=== PATIENT | male | born 1965 | race Caucasian/White ===

== ENCOUNTER → 2018-08-31 | Outpatient (REF) | payer OTHER ==
[2018-08-31 18:10] LABS: BASO # 0.1 10^3/uL (0.0-0.2); BASO % 0.5 % (0.0-1.0); EOS # 0.1 10^3/uL (0.0-0.50); EOS % 1.1 % (0.0-3.0); HEMATOCRIT 50.8 % (42.0-52.0); HEMOGLOBIN 16.7 g/dl (13.5-17.5); IMMATURE GRANULOCYTE % 0.4 % (0-3.0); LYMPH # 2.7 10^3/uL (1.5-4.5); LYMPH % 24.3 % (24.0-44.0); MEAN CORPUSCULAR HEMOGLOBIN 27.7 pg (27.0-33.0); MEAN CORPUSCULAR HGB CONC 32.9 g/dl (32.0-36.5); MEAN CORPUSCULAR VOLUME 84.2 fl (80.0-96.0); MONO # 0.8 10^3/uL (0.0-0.8); MONO % 7.3 % (0.0-5.0); NEUTROPHILS # 7.3 10^3/uL (1.8-7.7); NEUTROPHILS % 66.4 % (36.0-66.0); PLATELET COUNT, AUTOMATED 394 10^3/uL (150-450); RED BLOOD COUNT 6.03 10^6/uL (4.30-6.10); RED CELL DISTRIBUTION WIDTH 17.2 % (11.5-14.5)
[2018-08-31 18:48] LABS: ALBUMIN 3.4 GM/DL (3.2-5.2); ALBUMIN/GLOBULIN RATIO 0.92 (1.00-1.93); ALKALINE PHOSPHATASE 53 U/L (45-117); ALT/SGPT 69 U/L (12-78); ANION GAP 8 MEQ/L (8-16); AST/SGOT 30 U/L (7-37); BLOOD UREA NITROGEN 15 MG/DL (7-18); CALCIUM LEVEL 8.7 MG/DL (8.5-10.1); CARBON DIOXIDE LEVEL 26 MEQ/L (21-32); CHLORIDE LEVEL 106 MEQ/L (98-107); CHOLESTEROL LEVEL 212 MG/DL (<200); CHOLESTEROL RISK RATIO 8.833 (<5); CREATININE FOR GFR 1.96 MG/DL (0.70-1.30); GLUCOSE, FASTING 79 MG/DL (70-100); HDL CHOLESTEROL 24 MG/DL (>40); LDL CHOLESTEROL 168 MG/DL (<100); NON-HDL-C 188 MG/DL; POTASSIUM SERUM 4.8 MEQ/L (3.5-5.1); SODIUM LEVEL 140 MEQ/L (136-145); TOTAL PROTEIN 7.1 GM/DL (6.4-8.2); TRIGLYCERIDES LEVEL 102 MG/DL (<150)
== END ==
LOC: M SFHCCAPE 12:11
DX: R74.8 Abnormal levels of other serum enzymes (principal); I50.9 Heart failure, unspecified

== ENCOUNTER → 2018-09-13 | Outpatient (CLI) | payer OTHER ==
[2018-09-13 17:08] LABS: HEMATOCRIT 50.7 % (42.0-52.0); HEMOGLOBIN 16.3 g/dl (13.5-17.5); MEAN CORPUSCULAR HEMOGLOBIN 26.8 pg (27.0-33.0); MEAN CORPUSCULAR HGB CONC 32.1 g/dl (32.0-36.5); MEAN CORPUSCULAR VOLUME 83.4 fl (80.0-96.0); PLATELET COUNT, AUTOMATED 306 10^3/uL (150-450); RED BLOOD COUNT 6.08 10^6/uL (4.30-6.10); RED CELL DISTRIBUTION WIDTH 15.2 % (11.5-14.5); WHITE BLOOD COUNT 9.5 10^3/uL (4.0-10.0)
[2018-09-13 17:10] LABS: ALBUMIN 3.6 GM/DL (3.2-5.2); ANION GAP 8 MEQ/L (8-16); BILIRUBIN,DIRECT 0.4 MG/DL (0.0-0.2); BILIRUBIN,TOTAL 1.7 MG/DL (0.2-1.0); BLOOD UREA NITROGEN 24 MG/DL (7-18); CALCIUM LEVEL 8.5 MG/DL (8.5-10.1); CARBON DIOXIDE LEVEL 26 MEQ/L (21-32); CHLORIDE LEVEL 107 MEQ/L (98-107); CREATININE FOR GFR 2.08 MG/DL (0.70-1.30); GLOMERULAR FILTRATION RATE 35.5 (>56); GLUCOSE, FASTING 80 MG/DL (70-100); MAGNESIUM LEVEL 2.3 MG/DL (1.8-2.4); NT-PRO BNP 1588 PG/ML (<125); PHOSPHORUS LEVEL 2.9 MG/DL (2.5-4.9); POTASSIUM SERUM 4.4 MEQ/L (3.5-5.1); SODIUM LEVEL 141 MEQ/L (136-145)
== END ==
LOC: M WUC 11:33
DX: I50.43 Acute on chronic combined systolic (congestive) and diastolic (congestive) heart failure (principal)
CPT/HCPCS: 82247

== ENCOUNTER → 2018-09-25 | Outpatient (REF) | payer OTHER ==
[2018-09-25 13:48] LABS: BASO # 0.1 10^3/uL (0.0-0.2); BASO % 0.7 % (0.0-1.0); EOS # 0.3 10^3/uL (0.0-0.50); EOS % 3.5 % (0.0-3.0); HEMATOCRIT 50.2 % (42.0-52.0); HEMOGLOBIN 16.3 g/dl (13.5-17.5); IMMATURE GRANULOCYTE % 0.1 % (0-3.0); LYMPH # 2.5 10^3/uL (1.5-4.5); LYMPH % 32.9 % (24.0-44.0); MEAN CORPUSCULAR HEMOGLOBIN 27.2 pg (27.0-33.0); MEAN CORPUSCULAR HGB CONC 32.5 g/dl (32.0-36.5); MEAN CORPUSCULAR VOLUME 83.8 fl (80.0-96.0); MONO # 0.5 10^3/uL (0.0-0.8); MONO % 6.6 % (0.0-5.0); NEUTROPHILS # 4.2 10^3/uL (1.8-7.7); NEUTROPHILS % 56.2 % (36.0-66.0); PLATELET COUNT, AUTOMATED 259 10^3/uL (150-450); RED BLOOD COUNT 5.99 10^6/uL (4.30-6.10); RED CELL DISTRIBUTION WIDTH 14.9 % (11.5-14.5); WHITE BLOOD COUNT 7.5 10^3/uL (4.0-10.0)
[2018-09-25 14:00] LABS: APPEARANCE, URINE CLEAR (CLEAR); BACTERIA, URINE AUTO NEGATIVE (NEGATIVE); BILIRUBIN, URINE AUTO NEGATIVE (NEGATIVE); BLOOD, URINE BLOOD NEGATIVE (NEGATIVE); COLOR, URINE YELLOW (YELLOW); GLUCOSE, URINE (UA) AUTO NEGATIVE (NEGATIVE); KETONE, URINE AUTO NEGATIVE (NEGATIVE); LEUKOCYTE ESTERASE, URINE AUTO NEGATIVE (NEGATIVE); MUCUS, URINE SMALL (NEGATIVE); NITRITE, URINE AUTO NEGATIVE (NEGATIVE); PROTEIN, URINE AUTO NEGATIVE (NEGATIVE); RBC, URINE AUTO 1 /HPF (0-3); SPECIFIC GRAVITY URINE AUTO 1.016 (1.002-1.035); SQUAMOUS EPITHELIAL CELL UR AU 0 /HPF (0-6); UROBILINOGEN, URINE AUTO 0.2 mg/dL (0.0-2.0); WBC, URINE AUTO 2 /HPF (0-3)
[2018-09-25 14:27] LABS: ALBUMIN 3.8 GM/DL (3.2-5.2); ANION GAP 8 MEQ/L (8-16); BLOOD UREA NITROGEN 28 MG/DL (7-18); CALCIUM LEVEL 9.1 MG/DL (8.5-10.1); CARBON DIOXIDE LEVEL 28 MEQ/L (21-32); CHLORIDE LEVEL 105 MEQ/L (98-107); CREATININE FOR GFR 2.05 MG/DL (0.70-1.30); GLOMERULAR FILTRATION RATE 36.1 (>56); GLUCOSE, FASTING 75 MG/DL (70-100); PHOSPHORUS LEVEL 4.2 MG/DL (2.5-4.9); SODIUM LEVEL 141 MEQ/L (136-145)
[2018-09-25 14:37] LABS: TOTAL 25(OH) VITAMIN D 25.8 NG/ML (30.0-100.0)
== END ==
LOC: M LAB REF 12:54
DX: N18.3 Chronic kidney disease, stage 3 (moderate) (principal); D63.1 Anemia in chronic kidney disease; E55.9 Vitamin D deficiency, unspecified; N25.81 Secondary hyperparathyroidism of renal origin
CPT/HCPCS: 80069

== ENCOUNTER → 2018-09-30 | Outpatient (CLI) | payer OTHER, MEDICAID | LOC: M RAD 08:47 | DX: N18.3 Chronic kidney disease, stage 3 (moderate) (principal); N28.1 Cyst of kidney, acquired | CPT/HCPCS: 76770 ==

== ENCOUNTER → 2018-10-11 | Outpatient (CLI) | payer MEDICAID, OTHER ==
[~2018-10-11] MED LIST: ENTR1TAB PO; METO1TAB32 PO
[2018-10-11 17:31] LABS: CREATININE FOR GFR 1.9 MG/DL (0.70-1.30); GLOMERULAR FILTRATION RATE 39.4 (>56)
== END ==
LOC: M WUC 10:09
PROVIDERS: ATTEND Internal Medicine Cardiovascular Disease
DX: Z01.818 Encounter for other preprocedural examination (principal); I50.21 Acute systolic (congestive) heart failure; R93.1 Abnormal findings on diagnostic imaging of heart and coronary circulation

== ENCOUNTER → 2018-11-10 | Outpatient (CLI) | payer OTHER ==
--- NOTE | 2018-11-13 10:37 | SLEEPCENT ---
DATE OF STUDY: 11/10/2018 ORDERED BY: Dr. Castro Nocturnal polysomnography was performed for evaluation of sleep physiology in this patient with a history of excessive somnolence and nonrestorative sleep, who has comorbidities of dilated cardiomyopathy, reduction of ejection fraction and chronic kidney disease. 8 hours and 49 minutes of data were reviewed. There were 423 minutes of sleep identified. Sleep latency was prolonged at 62.5 minutes. Rapid eye movement (REM) latency was short at 64.5 minutes. Sleep architecture was fairly good with 4 REM cycles. There was significant fragmentation noted however, and the overall sleep was 81%. The electrocardiogram showed a sinus rhythm with premature ventricular contractions (PVCs). Average heart rate 70 beats per minute. Rate ranged 50-80 per minute. EEG showed normal waveforms for awake and sleep stages. No focal events were identified. There were 220 respiratory events identified of 10 seconds in duration or greater for an apnea-hypopnea index of 31.2; 76 of these events were central or mixed in nature. The events were not exclusive to sleep stage nor body posture. Arousals from respiratory events occurred 9.6 times per hour and oxygen desaturations were seen into the 80s. There was some activity in the limb leads but arousals from limb events were few. Snoring was noted. IMPRESSION: Severe possibly complex obstructive sleep apnea syndrome (G47.33). Apnea-hypopnea index 31.2. RECOMMENDATIONS: The patient should be encouraged to return to the sleep disorder center for pressure therapy. Given the frequency of central and mixed apneas, a bilevel device and backup rate may be needed. In the interim, alcohol and sedative avoidance should be practiced and caution exercised during the operation of motor vehicles.
== END ==
LOC: M SLEEP 19:38
PROVIDERS: ATTEND Internal Medicine Pulmonary Disease
DX: G47.33 Obstructive sleep apnea (adult) (pediatric) (principal)

== ENCOUNTER → 2018-11-18 | Outpatient (CLI) | payer OTHER ==
--- NOTE | 2018-11-18 14:55 | REP ---
LEFT CLAVICLE, TWO VIEWS: HISTORY: Pain. There is no acute fracture or dislocation. The glenohumeral joint space is normal in appearance. There is moderate narrowing of the acromioclavicular joint space with associated osteophyte formation. IMPRESSION: Degenerative change as described above. Electronically Signed by Chad Victor MD 11/18/2018 03:04 P
== END ==
LOC: M WUC 14:21
PROVIDERS: ATTEND Physician Assistant
DX: M25.512 Pain in left shoulder (principal)

== ENCOUNTER → 2018-11-25 | Outpatient (CLI) | payer OTHER ==
--- NOTE | 2018-11-25 12:59 | REP ---
Clinical: Abnormal pulmonary findings. Technique: Axial noncontrast images from the thoracic inlet to the upper abdomen with coronal and sagittal re-formations. Comparison: 08/22/2018. Findings: Cardiomegaly is appreciated with mild atherosclerotic changes to the thoracic aorta and coronary arteries. No pericardial effusion is identified. The lung maurer demonstrate minimal linear scarring to the lingula. Subtle air space disease to the right lower lobe may reflect an early versus resolving infiltrate. No further consolidation, significant nodule or mass lesion. Previously identified pleural effusions and pulmonary edema have resolved.. The tracheobronchial tree is patent. No obvious adenopathy. Musculoskeletal structures are intact. Limited upper abdomen demonstrates normal bilateral adrenal glands. Impression: 1. Cardiomegaly. 2. No current evidence for CHF or pulmonary edema. Previously noted pleural effusions and pulmonary congestion has resolved. 3. Possible extremely subtle early or resolving right lower lobe air space disease. 4. No further significant/acute mediastinal or pleuroparenchymal process appreciated. Electronically Signed by Demian Barroso MD 11/25/2018 12:51 P
== END ==
LOC: M RAD 12:24
PROVIDERS: ATTEND Internal Medicine Pulmonary Disease
DX: R91.8 Other nonspecific abnormal finding of lung field (principal); I51.7 Cardiomegaly; I70.0 Atherosclerosis of aorta; I25.10 Atherosclerotic heart disease of native coronary artery without angina pectoris

== ENCOUNTER → 2018-12-30 | Outpatient (CLI) | payer OTHER | LOC: M WUC 14:20 | PROVIDERS: ATTEND Internal Medicine Cardiovascular Disease | DX: I50.42 Chronic combined systolic (congestive) and diastolic (congestive) heart failure (principal) ==

== ENCOUNTER → 2019-01-05 | Outpatient (CLI) | payer OTHER ==
--- NOTE | 2019-01-08 10:00 | SLEEPCENT ---
DATE OF PROCEDURE: 01/05/2019 ORDERED BY: Dr. Castro Nocturnal polysomnography was performed for the titration of pressure therapy in this patient with obstructive sleep apnea syndrome and apnea-hypopnea index of 31. For testing, a [employer] Simplus full face mask of medium size was used and 4 cm of water pressure were applied to the circuit and the lights were extinguished. 7 hours and 51 minutes of data were reviewed. There were 355 minutes of sleep identified. Sleep latency was prolonged at 75 minutes. Rapid eye movement (REM) latency was normal at 85 minutes. Sleep architecture improved with optimal pressure therapy. Overall efficiency was 76%. The electrocardiogram showed sinus rhythm with PVCs and average heart rate of 56 beats per minute. Electroencephalogram (EEG) showed normal waveforms for awake and sleep. Respiratory events were fully palliated with C-PAP at a pressure of +6. Some limb activity, but limb movement arousal index was only 4.7. IMPRESSION: Obstructive sleep apnea syndrome (G47.33) RECOMMENDATION: Nightly use of pressure therapy 6 at cm of water.
== END ==
LOC: M SLEEP 19:07
PROVIDERS: ATTEND Internal Medicine Pulmonary Disease
DX: G47.33 Obstructive sleep apnea (adult) (pediatric) (principal)

== ENCOUNTER → 2019-12-29 | Outpatient (CLI) | payer OTHER | LOC: M WUC 12:02 | PROVIDERS: ATTEND Nurse Practitioner Family | DX: N18.3 Chronic kidney disease, stage 3 (moderate) (principal) ==

== ENCOUNTER → 2020-04-19 | Outpatient (CLI) | payer OTHER ==
[~2020-04-19] MED LIST changes: +SPIR-10 PO; +TOPR100T PO; +VITA50005 PO
[2020-04-19 14:27] LABS: BASO % 0.5 % (0.0-1.0); EOS # 0.4 10^3/uL (0.0-0.5); EOS % 4.8 % (0.0-3.0); HEMATOCRIT 44.2 % (42.0-52.0); HEMOGLOBIN 14.8 g/dl (13.5-17.5); LYMPH # 2.7 10^3/uL (1.5-5.0); LYMPH % 35.9 % (24.0-44.0); MEAN CORPUSCULAR HEMOGLOBIN 29.1 pg (27.0-33.0); MEAN CORPUSCULAR HGB CONC 33.5 g/dl (32.0-36.5); MEAN CORPUSCULAR VOLUME 86.8 fl (80.0-96.0); MONO # 0.5 10^3/uL (0.0-0.8); MONO % 7.3 % (0.0-5.0); NEUTROPHILS # 3.8 10^3/uL (1.5-8.5); NEUTROPHILS % 51.2 % (36.0-66.0); PLATELET COUNT, AUTOMATED 241 10^3/uL (150-450); RED BLOOD COUNT 5.09 10^6/uL (4.30-6.10); WHITE BLOOD COUNT 7.4 10^3/uL (4.0-10.0)
[2020-04-19 15:02] LABS: ALBUMIN 3.4 GM/DL (3.2-5.2); ALT/SGPT 20 U/L (12-78); BILIRUBIN,TOTAL 0.5 MG/DL (0.2-1.0); BLOOD UREA NITROGEN 9 MG/DL (7-18); CALCIUM LEVEL 8.8 MG/DL (8.5-10.1); CARBON DIOXIDE LEVEL 29 MEQ/L (21-32); CHLORIDE LEVEL 102 MEQ/L (98-107); FERRITIN 110 NG/ML (26-388); FREE T4 1.03 NG/DL (0.76-1.46); GLOMERULAR FILTRATION RATE 51.5 (>56); GLUCOSE, FASTING 133 MG/DL (70-100); IRON (FE) 81 UG/DL (65-175); PERCENT SATURATION 26.4 % (19.7-50.0); POTASSIUM SERUM 3.3 MEQ/L (3.5-5.1); SODIUM LEVEL 137 MEQ/L (136-145); TOTAL IRON BINDING CAPACITY 307 UG/DL (250-450); TOTAL PROTEIN 6.9 GM/DL (6.4-8.2)
[2020-04-20 09:48] LABS: ALBUMIN 4.11 GM/DL (3.29-5.55); ALBUMIN % 59.6 % (55.8-66.1); ALPHA-1-GLOBULIN % 4.1 % (2.9-4.9); ALPHA-1-GLOBULINS 0.28 GM/DL (0.17-0.41); ALPHA-2-GLOBULINS 0.71 GM/DL (0.42-0.99); ALPHA-2-GLOBULINS % 10.3 % (7.1-11.8); BETA-1-GLOBULINS 0.34 GM/DL (0.28-0.60); BETA-1-GLOBULINS % 4.9 % (4.7-7.2); BETA-2-GLOBULINS 0.35 GM/DL (0.19-0.55); GAMMA GLOBULIN % 16.1 % (11.1-18.8); GAMMA GLOBULINS 1.11 GM/DL (0.65-1.58)
[2020-04-21 16:12] LABS: BETA 2 MICROGLOBULIN 1.7 mg/L (0.6-2.4); ERYTHROPOIETIN 17.8 mIU/mL (2.6-18.5); FREE KAPPA LIGHT CHAINS SERUM 17.7 mg/L (3.3-19.4); KAPPA/LAMBDA RATIO SERUM 1.48 (0.26-1.65)
== END ==
LOC: M WUC 12:20
PROVIDERS: ATTEND Internal Medicine Hematology & Oncology
DX: R71.8 Other abnormality of red blood cells (principal)

== ENCOUNTER → 2021-03-15 | Outpatient (CLI) | payer OTHER ==
[2021-03-15 16:52] LABS: BASO % 0.5 % (0.0-1.0); EOS # 0.3 10^3/uL (0.0-0.5); EOS % 3.8 % (0.0-3.0); HEMATOCRIT 51.8 % (42.0-52.0); HEMOGLOBIN 16.3 g/dl (13.5-17.5); LYMPH # 2.5 10^3/uL (1.5-5.0); LYMPH % 30.5 % (24.0-44.0); MEAN CORPUSCULAR HEMOGLOBIN 27.3 pg (27.0-33.0); MEAN CORPUSCULAR HGB CONC 31.5 g/dl (32.0-36.5); MEAN CORPUSCULAR VOLUME 86.9 fl (80.0-96.0); MONO # 0.8 10^3/uL (0.0-0.8); MONO % 9.4 % (2.0-8.0); NEUTROPHILS # 4.5 10^3/uL (1.5-8.5); NEUTROPHILS % 55.4 % (36.0-66.0); PLATELET COUNT, AUTOMATED 300 10^3/uL (150-450); RED BLOOD COUNT 5.96 10^6/uL (4.30-6.10); WHITE BLOOD COUNT 8.1 10^3/uL (4.0-10.0)
[2021-03-15 17:30] LABS: ALBUMIN 3.6 GM/DL (3.2-5.2); BILIRUBIN,TOTAL 0.7 MG/DL (0.2-1.0); CALCIUM LEVEL 8.9 MG/DL (8.5-10.1); CREATININE FOR GFR 1.45 MG/DL (0.70-1.30); GLOMERULAR FILTRATION RATE 53.4 (>56); POTASSIUM SERUM 3.6 MEQ/L (3.5-5.1); THYROID STIMULATING HORMONE 1.7 uIU/ML (0.358-3.740); TOTAL PROTEIN 7.2 GM/DL (6.4-8.2)
[2021-03-15 17:31] LABS: TOTAL 25(OH) VITAMIN D 37.6 NG/ML (30.0-100.0)
== END ==
LOC: M WUC 11:21
PROVIDERS: ATTEND Pediatrics
DX: N18.30 Chronic kidney disease, stage 3 unspecified (principal); I50.9 Heart failure, unspecified; I42.0 Dilated cardiomyopathy; D45 Polycythemia vera

== ENCOUNTER → 2021-03-15 | Outpatient (CLI) | payer OTHER ==
[2021-03-15 16:52] LABS: BASO % 0.5 % (0.0-1.0); EOS # 0.3 10^3/uL (0.0-0.5); EOS % 4.2 % (0.0-3.0); HEMATOCRIT 51.1 % (42.0-52.0); HEMOGLOBIN 16.1 g/dl (13.5-17.5); LYMPH # 2.5 10^3/uL (1.5-5.0); MEAN CORPUSCULAR HEMOGLOBIN 27.4 pg (27.0-33.0); MEAN CORPUSCULAR HGB CONC 31.5 g/dl (32.0-36.5); MEAN CORPUSCULAR VOLUME 86.9 fl (80.0-96.0); MONO # 0.8 10^3/uL (0.0-0.8); MONO % 9.8 % (2.0-8.0); NEUTROPHILS # 4.4 10^3/uL (1.5-8.5); NEUTROPHILS % 54.3 % (36.0-66.0); PLATELET COUNT, AUTOMATED 288 10^3/uL (150-450); RED BLOOD COUNT 5.88 10^6/uL (4.30-6.10); WHITE BLOOD COUNT 8.1 10^3/uL (4.0-10.0)
== END ==
LOC: M WUC 11:24
PROVIDERS: ATTEND Internal Medicine Hematology & Oncology
DX: R79.9 Abnormal finding of blood chemistry, unspecified (principal)

== ENCOUNTER → 2021-08-28 | Outpatient (REF) | payer OTHER ==
[~2021-08-28] MED LIST changes: +ERGO500029 PO; -VITA50005 PO
== END ==
LOC: M LAB REF 13:05
PROVIDERS: ATTEND Nurse Practitioner Family
DX: E83.42 Hypomagnesemia (principal)